=== PATIENT | male | born 1945 | race Caucasian/White ===

== ENCOUNTER 2018-02-05 13:13 | Outpatient (CLI) | payer OTHER | END 2018-02-05 19:44 | disposition home or self-care (01) | LOC: SRD 13:13 | PROVIDERS: ATTEND Internal Medicine | DX: M17.12 Unilateral primary osteoarthritis, left knee (principal); I10 Essential (primary) hypertension; F15.90 Other stimulant use, unspecified, uncomplicated; Z72.89 Other problems related to lifestyle | CPT/HCPCS: 73564 ==